=== PATIENT | male | born 1995 | race Caucasian/White ===

== ENCOUNTER 2021-03-03 07:37 | Day surgery (SDC) | payer BC ==
[~2021-03-03] VITALS: Ht 172.7 cm; Wt 72.7 kg
[2021-03-03 08:06] LABS: CALC OSMOLALITY 277 mosm/kg (275-300); CARBON DIOXIDE 26.4 mmol/L (21.0-32.0); CHLORIDE - SERUM 104 mmol/L (98-107); CREATININE - SERUM 0.8 mg/dL (0.6-1.3); GLUCOSE 97 mg/dL (74-106); POTASSIUM - SERUM 3.9 mmol/L (3.5-5.1); SODIUM 140 mmol/L (136-145); UREA NITROGEN 11 mg/dL (7-18); eGFR NON AFRICAN AMERICAN > 90 mL/min (90-120)
[2021-03-03 08:08] LABS: BASOPHILS 1.4 % (0-2); EOSINOPHILS 2.8 % (0-7); HEMATOCRIT 48.5 % (42.0-54.0); HEMOGLOBIN 16.7 g/dL (13.5-17.5); LYMPHOCYTES 30.5 % (15-50); MCH 34.7 pg (26.0-34.0); MCHC 34.6 g/dL (31.0-37.0); MCV 100.5 fL (80.0-100.0); MEAN PLATELET VOLUME 8.1 fL (7.4-10.4); MONOCYTES 5.3 % (2-11); PLATELET COUNT 254 10x3/uL (130-400); RBC 4.82 10x6/uL (4.20-6.10); RDW 13.2 % (11.5-14.5); WBC 15.3 10x3/uL (4.8-10.8)
[2021-03-03 08:13] LABS: APTT 29.3 SECONDS (22.8-39.4); INR 1.17 (0.85-1.17); PROTIME 13.8 SECONDS (11.6-15.0)
[2021-03-03 08:46] VITALS: Ht 172.7 cm; Wt 72.7 kg
[2021-03-03] MEDS ORDERED: TYLENOL W/CODEI1 TAB PO (08:56)
--- NOTE | 2021-03-03 11:09 | NUR ---
1057 PT SLIGHTLY DROWSEY AND WAS AT WORK DURING THE NIGHT. AT BEDSIDE. DRINKING SPRITE. DENIES PAIN
--- NOTE | 2021-03-03 11:10 | NUR ---
1100 FREQ VS DONE
--- NOTE | 2021-03-03 12:31 | NUR ---
1200 IV SITE SWOLLEN, IV INFILTRATED. IV REMOVED AND ARM ELEVATED ON 2 PILLOWS AND WARM BLANKES APPLIED. DENIES PAIN. WIGGLES ALL FINGERS ON RIGHT HAND. DRESSING CDI. DENIES PAIN. INSTRUCTIONS GIVEN.
--- NOTE | 2021-03-03 13:20 | NUR ---
1300 RT ARM SWELLING DECREASED A LOT. SMALL AMT NOTED. PT ASLEEP BECAUSE HE WORKS AT NIGHT BUT EASY TO AWAKEN.
== END 2021-03-03 13:30 | disposition home or self-care (01) ==
LOC: D.CT 07:37
PROVIDERS: Specialist; ATTEND Internal Medicine Hematology & Oncology
DX: D72.823 Leukemoid reaction (principal)